=== PATIENT | female | born 1985 | race Caucasian/White ===

== ENCOUNTER 2025-07-26 12:00 | Emergency (ER) | payer BC, SELFPAY ==
[2025-07-26 12:12] VITALS: BP 116/79; PULSE 68; RESP 18; TEMP 36.7; O2SAT 100
--- NOTE | 2025-07-26 12:23 | ED_ITS ---
HPI - General Adult General Chief complaint: Urogenital-Female Stated complaint: Urinary Problem Time Seen by Provider: 07/26/25 12:24 Source: patient, RN notes reviewed and old records reviewed Mode of arrival: ambulatory Limitations: no limitations History of Present Illness HPI narrative: 40 year old female who presents to [facility] care with complaints of having pain to left flank region going to her left hip with urgency frequency of urination and burning of urine at first void in the morning for the past 2 weeks. Patient reports that she had UTI in 2022 with similar symptoms which did clear with medications that made her urine very neon and Macrobid she believes.Patient reports no fevers,chills or sweats, denies any nausea or vomiting or any diarrhea. Patient reports no injury to back or history of kidney stones. MD complaint: left flank pain left hip pain with urgency, frequeny of urination, Onset (ago): week(s) (2) Location: left and lower extremity (hip and coccyx) Severity scale (1-10): 6 Quality: burning and aching Treatments prior to arrival: other (increased water intake) Related Data Allergies Allergy/AdvReac Type Severity Reaction Status Date / Time No Known Allergies Allergy Verified 07/26/25 12:13 Review of Systems Review of Systems: CONSTITUTIONAL: Denies fever, chills, or sweats. CARDIOVASCULAR: Denies chest pain, palpitations, or edema. RESPIRATORY: Denies cough or dyspnea. GASTROINTESTINAL: Denies abdominal pain, nausea, vomiting, or diarrhea. GENITOURINARY: Reports dysuria, frequency, urgency. + left flank pain no hematuria. SKIN: Denies rash or itching. MUSCULOSKELETAL: reports pain to left flank going into her left hip or myalgia. reports left CVA tenderness NEUROLOGIC: Denies headache All systems reviewed & are unremarkable except as noted in HPI and below PMFSH Past Medical History Medical History (Updated 07/27/25 @ 10:29 by Yamileth Salvador APRN) UTI (urinary tract infection) Surgical History Surgical History (Updated 07/27/25 @ 10:24 by Yamileth Salvador APRN) History of nasal surgery Social History Social History (Updated 07/27/25 @ 10:26 by Yamileth Salvador APRN) Smoking status: Never smoker Alcohol intake: current Alcohol use details: social Substance use type: does not use Living arrangements: with family Additional occupation/education comments: infusion nurse Gender identity (if verbalized by the patient): Female Comments At time of signature, agree with nursing past medical, surgical, social and family history. There is no relevant family history pertinent to the presenting complaint Exam Narrative: GENERAL: Well-appearing, well-nourished, and in no acute distress. HEAD: Normocephalic, atraumatic. NECK: Supple.no lymphadenopathy CHEST: Clear to auscultation. No respiratory distress.[id number] on room air HEART: Regular rate and rhythm. No murmur heard. Normal peripheral pulses. ABDOMEN: Soft, nontender to palpation no McBurney point pain or any suprapubic pain, nondistended, normal active bowel sounds. Left CVA tenderness EXTREMITIES: Normal range of motion. No edema. SKIN: Warm, dry, no rash. NEURO: No focal deficits. Alert and oriented x3. Course Course Emergency Course: Patient is aware of diagnosis, understands and agrees to treatment plan.? Anticipatory guidance given.? Patient agrees to follow-up as directed and is aware of reasons to seek care at the emergency department. Portions of this record may have been created with voice recognition software Level of Care: Express Care Visit Vital Signs Vital signs: Vital Signs Temperature 36.7 C 07/26/25 12:12 Pulse Rate 68 07/26/25 12:12 Respiratory Rate 18 07/26/25 12:12 Blood Pressure 116/79 07/26/25 12:12 Pulse Oximetry 100 07/26/25 12:12 Oxygen Delivery Room Air 07/26/25 12:12 Temperature 36.7 C 07/26/25 12:12 Pulse Rate 68 07/26/25 12:12 Respiratory Rate 18 07/26/25 12:12 Blood Pressure 116/79 07/26/25 12:12 Pulse Oximetry 100 07/26/25 12:12 Oxygen Delivery Room Air 07/26/25 12:12 Medical Decision Making Differential Diagnosis Differential Diagnosis: left flank pain radiates to hip. urinary frequency and urgency, burning of urine in mornings Medical Records Medical records reviewed: Yes I reviewed the external patient's medical records. Vital Signs Vital Signs: Vital Signs Temperature 36.7 C 07/26/25 12:12 Pulse Rate 68 07/26/25 12:12 Respiratory Rate 18 07/26/25 12:12 Blood Pressure 116/79 07/26/25 12:12 Pulse Oximetry 100 07/26/25 12:12 Oxygen Delivery Room Air 07/26/25 12:12 Temperature 36.7 C 07/26/25 12:12 Pulse Rate 68 07/26/25 12:12 Respiratory Rate 18 07/26/25 12:12 Blood Pressure 116/79 07/26/25 12:12 Pulse Oximetry 100 07/26/25 12:12 Oxygen Delivery Room Air 07/26/25 12:12 Lab Data Lab results reviewed: Yes I reviewed the patient's lab results. Lab results narrative: urine dip: glucose negative, bilirubin negative, ketone negative specific gravity 1.015, blood negative pH 6.0 protein negative urobilinogen 0.2 nitrite negative and leukocyte negative Labs: Lab Results 07/26/25 Range/Units 12:24 POC Urine Color Yellow POC Urine Clarity Clear POC Urine pH 6.0 POC Ur Specif [place] 1.015 POC Urine Protein Negative (Negative) POC Ur Glucose (UA) Negative (Negative) POC Urine Ketones Negative (Negative) POC Urine Blood Negative (Negative) POC Urine Nitrite Negative (Negative) POC Urine Bilirubin Negative (Negative) POC Urine Urobilinogen 0.2 POC U Leukocyte Esteras Negative (Negative) reviewed Critical Care Time Critical Care Time Critical Care Time: No Discharge Plan Discharge Clinical Impression: Urinary tract infection symptoms, Left flank pain Patient Disposition: Home Condition: Stable Instructions: Antibiotic Form, Urinary Tract Infection in Women (ED), Urinary Urgency and Frequency (DC) Additional Instructions: Increase fluids especially cranberry juice and water Avoid caffeine and carbonated beverages Antibiotic as directed Medicine as directed--cautioned it will cause your urine to be bright orange Tylenol/ibuprofen for pain or fever Follow-up with her primary care provider if further problems or concerns Recheck if you have fever over 101, nausea and vomiting. monitor for any fevers If your symptoms persist, change or worsen significantly before you can contact your personal physician then please, without delay, go to the emergency department for further evaluation. Follow-up with PCP in 7-10 days or sooner if needed Patient Language: [place]ian Prescriptions: New nitrofurantoin monohyd/m-cryst [Macrobid] 100 mg capsule 100 mg PO Q12H 7 Days Qty: 14 0RF Rx Instructions: must administer with a meal/food phenazopyridine [Pyridium] 200 mg tablet 200 mg PO TID PRN (Reason: pain) Qty: 6 0RF Follow-up/Referrals: UNKNOWN,DOCTOR [Primary Care Provider] Time of Disposition: 12:38 Quality [place] Coma Scale Eyes: Open Verbal: Oriented and Alert Motor: Follows Commands [place] Coma Total Score: 15
[2025-07-26 12:26] LABS: EDUAAPPEAR Clear; EDUABILI Negative (Negative); EDUABLOOD Negative (Negative); EDUACOLOR1 Yellow; EDUAGLUCOSE Negative (Negative); EDUAKETONE Negative (Negative); EDUALEUKO Negative (Negative); EDUANITRATE Negative (Negative); EDUAPH 6.0; EDUAPROTEIN Negative (Negative); EDUASPGRAVITY 1.015; EDUAUROBILI 0.2
== END 2025-07-26 12:44 | disposition home or self-care (01) ==
PROVIDERS: Emergency Provider Registered Nurse
DX: R39.15 Urgency of urination (principal); R35.0 Frequency of micturition; R30.0 Dysuria; R10.A2 Flank pain, left side
CPT/HCPCS: 81003; 87086; 87186; 99203; G0463